=== PATIENT | female | born 1960 | race Caucasian/White ===

== ENCOUNTER 2019-07-07 06:55 | Emergency (ER) | payer OTHER ==
[2019-07-07] MEDS ORDERED: Ibuprofen 600 MG TAB ONE (08:05)
--- NOTE | 2019-07-07 08:39 | RAD ---
SACRUM AND COCCYX: HISTORY: Fall earlier today. FINDINGS: The SI joints are symmetric. I do not appreciate any fracture of the sacrum or coccyx. IMPRESSION: No acute injury. POS: MAT
--- NOTE | 2019-07-07 08:40 | RAD ---
RIGHT WRIST FOUR VIEWS: HISTORY: Fall earlier today. FINDINGS: There is a distal radial fracture. The fracture has a transverse but also an intra-articular componen t. It is essentially nondisplaced with very minimal dorsal angulation. No associated ulnar fracture i s seen. IMPRESSION: Distal radial fracture. POS: COLE
== END 2019-07-07 08:15 | disposition home or self-care (01) ==
LOC: MADERS 06:55
DX: S52.571A Other intraarticular fracture of lower end of right radius, initial encounter for closed fracture (principal); S30.0XXA Contusion of lower back and pelvis, initial encounter; I10 Essential (primary) hypertension; F32.9 Major depressive disorder, single episode, unspecified; Z79.899 Other long term (current) drug therapy; W18.30XA Fall on same level, unspecified, initial encounter
CPT/HCPCS: 29125; 72220

== ENCOUNTER 2019-12-20 13:01 | Emergency (ER) | payer OTHER | END 2019-12-20 14:15 | disposition home or self-care (01) | LOC: MADERS 13:01 | DX: R42 Dizziness and giddiness (principal); R51 Headache; I10 Essential (primary) hypertension; F32.9 Major depressive disorder, single episode, unspecified | CPT/HCPCS: 99283 ==